=== PATIENT | male | born 1980 | race Caucasian/White ===

== ENCOUNTER 2019-09-26 17:15 | Outpatient (CLI) | payer OTHER, SELFPAY ==
--- NOTE | 2019-09-26 | XR_ITS ---
WS: [id number] CHEST 2 VIEWS HISTORY: COUGH SINCE END OF MAY COMPARISON: 08/21/2016 Lungs: Clear with no abnormality. No pleural effusion or pneumothorax. Cardiac size: Normal. Mediastinum/Aorta: Normal mediastinum. Bones: Normal. XR/XR chest 2V* [id number] IMPRESSION: Normal chest.
== END 2019-09-26 17:16 | disposition home or self-care (01) ==
LOC: RADOUTREAD 09-27 10:32
PROVIDERS: Family Provider Family Medicine; PCP Family Medicine; Visit Provider Nurse Practitioner Family
DX: Z76.89 Persons encountering health services in other specified circumstances (principal)